=== PATIENT | female | born 1975 | race Caucasian/White ===

== ENCOUNTER 2021-10-04 00:15 | Emergency (ER) | payer MEDICARE, MEDICAID, SELFPAY ==
[2021-10-04 00:16] VITALS: BP 142/91; PULSE 83; RESP 18; TEMP 36.6; O2SAT 97; BMI 23.2; BMI 24.1
--- NOTE | 2021-10-04 00:21 | CT_ITS ---
PROCEDURE INFORMATION: Exam: CT Head Without Contrast Exam date and time: 10/04/2021 12:21 AM Age: 46 years old Clinical indication: Injury or trauma; Fall; Laceration; Without loss of consciousness; Without residual foreign body; Scalp; Injury date: 10/04/2021; Additional info: Head injury laceration back of head dee applied TECHNIQUE: Imaging protocol: Computed tomography of the head without contrast. Radiation optimization: All CT scans at this facility use at least one of these dose optimization techniques: automated exposure control; mA and/or kV adjustment per patient size (includes targeted exams where dose is matched to clinical indication); or iterative reconstruction. COMPARISON: No relevant prior studies available. FINDINGS: Brain: Normal. No hemorrhage. Unremarkable white matter. No mass effect. Cerebral ventricles: No ventriculomegaly. Paranasal sinuses: Visualized sinuses are unremarkable. No fluid levels. Mastoid air cells: Visualized mastoid air cells are well aerated. Vasculature: Intraranial artery density is normal. Bones/joints: Unremarkable. No acute fracture. Soft tissues: There are skin dee identified within occipital scalp. IMPRESSION: No acute intracranial abnormality.
--- NOTE | 2021-10-04 00:21 | CT_ITS ---
PROCEDURE INFORMATION: Exam: CT Cervical Spine Without Contrast Exam date and time: 10/04/2021 12:21 AM Age: 46 years old Clinical indication: Injury or trauma; Fall; Laceration; Without foreign body; Injury date: 10/04/2021; Additional info: Head injury laceration back of head TECHNIQUE: Imaging protocol: Computed tomography images of the cervical spine without contrast. Radiation optimization: All CT scans at this facility use at least one of these dose optimization techniques: automated exposure control; mA and/or kV adjustment per patient size (includes targeted exams where dose is matched to clinical indication); or iterative reconstruction. COMPARISON: CT HEAD/BRAIN WO CON 10/04/2021 12:53 AM FINDINGS: Bones/joints: No acute fracture. Mild straightening of the cervical lordotic curvature which may be on the basis of patient head position at the time of image acquisition. Discs/Spinal canal/Neural foramina: Intervertebral disc space narrowing at C2-C3, C3-C4, C4-C5, C5-C6, and C6-C7. 2 mm of posterior osseous encroachment into the anterior epidural space is noted at C4-C5, C5-C6, and C6-C7. Facets appear fairly well maintained throughout the cervical spine. Hypertrophic changes and narrowing noted between the anterior arch of C1 and the dens of C2. Degenerative endplate sclerosis noted at C3, C4, C5, and C6. Lungs: Lung apices are normal. Soft tissues: Unremarkable. IMPRESSION: There is osteoarthritis of the cervical spine. No evidence of acute fracture. No evidence of osseous central canal stenosis.
[2021-10-04 00:38] LABS: Urine Pregnancy, HCG Qual. Negative (Negative)
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
--- NOTE | 2021-10-04 03:18 | PC.NURSE ---
pt awaiting a ride in room.
[2021-10-04 05:54] VITALS: BP 138/92; PULSE 87; RESP 16; TEMP 36.9; O2SAT 99
== END 2021-10-04 05:56 | disposition home or self-care (01) ==
PROVIDERS: Emergency Provider Emergency Medicine
DX: S06.0X0A Concussion without loss of consciousness, initial encounter (principal); Y08.89XA Assault by other specified means, initial encounter; S01.01XA Laceration without foreign body of scalp, initial encounter
CPT/HCPCS: 12001; 70450; 72125; 81025; 99283